=== PATIENT | male | born 1995 | race Caucasian/White ===

== ENCOUNTER 2016-11-15 14:33 | Emergency (ER) | payer SELFPAY ==
--- NOTE | 2016-11-15 14:44 | ER Document Report ---
ED Medical Screen (RME) - General Stated Complaint: SYNCOPE Mode of Arrival: Medic Information source: Emergency Med Personnel Notes: patients presents to the emergency department via EMS for syncope episode. EMS reports patient was up working on a fell over hit the car and then landed on the ground. Family reports patient was making posturing movements. Unsure of how long he was out. Denies past medical history of syncope. Laceration to right eyebrow with hematoma. Pt reports he has been eating/drinking as normal, denies f/v/d. Reports hx of dizziness. Denies CAD. I have greeted and performed a rapid initial assessment of this patient. A comprehensive ED assessment and evaluation of the patient, analysis of test results and completion of the medical decision making process will be conducted by additional ED providers. TRAVEL OUTSIDE OF THE [place] IN LAST 30 DAYS: No - Related Data Allergies/Adverse Reactions: No Known Allergies Allergy (Unverified 06/03/14 11:01) Past Medical History Psychiatric Medical History: Reports: Hx Depression - Immunizations Hx Diphtheria, Pertussis, Tetanus Vaccination: Yes Physical Exam - Vital signs Vitals: Temp Pulse Resp BP Pulse Ox 97.5 F 59 L 16 106/69 100 11/15/16 14:42 11/15/16 14:42 11/15/16 14:42 11/15/16 14:42 11/15/16 14:42 Course - Vital Signs Vital signs: Temp Pulse Resp BP Pulse Ox 97.5 F 59 L 16 106/69 100 11/15/16 14:42 11/15/16 14:42 11/15/16 14:42 11/15/16 14:42 11/15/16 14:42
[2016-11-15 14:46] VITALS: BP 106/69
[2016-11-15 17:53] LABS: ABSOLUTE EOSINOPHILS # (AUTO) 0.1 10^3/uL (0.0-0.6); ABSOLUTE LYMPHOCYTES (AUTO) 1.6 10^3/uL (0.5-4.7); ABSOLUTE MONOCYTES (AUTO) 0.5 10^3/uL (0.1-1.4); ABSOLUTE NEUT (AUTO) 4.7 10^3/uL (1.7-8.2); BASOPHILS % (AUTO) 0.3 % (0-2); EOSINOPHILS % (AUTO) 1.3 % (0-6); HEMATOCRIT 38.8 % (37.9-51.0); HEMOGLOBIN 13.4 g/dL (13.5-17.0); HGB HCT DIFFERENCE 1.4; LYMPHOCYTES % (AUTO) 22.7 % (13-45); MEAN CORPUSCULAR HEMOGLOBIN 28.7 pg (27.0-33.4); MEAN CORPUSCULAR HGB CONC 34.6 g/dL (32.0-36.0); MEAN CORPUSCULAR VOLUME 83 fl (80-97); MONOCYTES % (AUTO) 6.6 % (3-13); RED BLOOD COUNT 4.68 10^6/uL (4.35-5.55); RED CELL DISTRIBUTION WIDTH 12.9 % (11.5-14.0); SEGMENTED NEUTROPHILS % (AUTO) 69.1 % (42-78); WHITE BLOOD COUNT 6.8 10^3/uL (4.0-10.5)
[2016-11-15 17:56] LABS: APPEARANCE,URINE CLEAR; BILIRUBIN,URINE NEGATIVE (NEGATIVE); CALCIUM OXALATE CRYSTALS,URINE RARE /HPF; GLUCOSE, URINE NEGATIVE (NEGATIVE); KETONES,URINE NEGATIVE (NEGATIVE); LEUKOCYTE ESTERASE,URINE NEGATIVE (NEGATIVE); NITRITE,URINE NEGATIVE (NEGATIVE); PROTEIN,URINE NEGATIVE (NEGATIVE); URINE SPECIFIC GRAVITY 1.018; UROBILINOGEN,URINE NEGATIVE mg/dL (<2.0)
[2016-11-15 18:09] LABS: URINE BARBITURATES SCREEN NEGATIVE; URINE METHADONE SCREEN NEGATIVE; URINE OPIATES LOW NEGATIVE; URINE PHENCYCLIDINE SCREEN NEGATIVE
[2016-11-15 18:14] LABS: ALANINE AMINOTRANSFERASE 23 U/L (21-72); ALBUMIN 3.5 g/dL (3.5-5.0); ALKALINE PHOSPHATASE 58 U/L (38-126); ANION GAP 10 (5-19); ASPARTATE AMINO TRANSFERASE 17 U/L (17-59); BILIRUBIN,DIRECT 0.1 mg/dL (0.0-0.4); BILIRUBIN,TOTAL 0.2 mg/dL (0.2-1.3); BLOOD UREA NITROGEN 9 mg/dL (7-20); CALCIUM 8.4 mg/dL (8.4-10.2); CARBON DIOXIDE 22 mmol/L (22-30); CHLORIDE 114 mmol/L (98-107); CREATININE RESULT 0.78 mg/dL (0.52-1.25); GLUCOSE 87 mg/dL (75-110); POTASSIUM 3.6 mmol/L (3.6-5.0); SODIUM 145.7 mmol/L (137-145)
--- NOTE | 2016-11-16 00:17 | EKG REPORT ---
SEVERITY:- NORMAL ECG - SINUS RHYTHM : Confirmed by: Ashlee Greenberg 16-Nov-2016 00:16:22
== END 2016-11-15 19:25 | disposition left against medical advice (07) ==
LOC: ER 14:33
DX: R55 Syncope and collapse (principal); S01.111A Laceration without foreign body of right eyelid and periocular area, initial encounter; W19.XXXA Unspecified fall, initial encounter; Y99.0 Civilian activity done for income or pay; Z53.20 Procedure and treatment not carried out because of patient's decision for unspecified reasons
CPT/HCPCS: 36415; 70450; 72125; 80053; 80307; 81001; 85025; 93005; 93010; 99281

== ENCOUNTER 2017-01-06 11:17 | Emergency (ER) | payer SELFPAY ==
[2017-01-06] MEDS ORDERED: PROCHLORPERAZINE EDISYLATE INJ 10 MG/2 ML VIAL IV ONE (12:25)
[2017-01-06] MEDS ORDERED: DIPHENHYDRAMINE HCL 50 MG/ML VIAL IV ONE (12:25)
[2017-01-06] MEDS ORDERED: KETOROLAC TROMETHAMINE INJ/PF 30 MG/1 ML SDV IV ONE (12:25)
[2017-01-06] MEDS ORDERED: NORMAL SALINE 1000 ML 1,000 ML IV ONE (12:26)
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
[2017-01-06 14:31] LABS: APPEARANCE,URINE SLIGHTLY-CLOUDY; BILIRUBIN,URINE NEGATIVE (NEGATIVE); GLUCOSE, URINE NEGATIVE (NEGATIVE); KETONES,URINE NEGATIVE (NEGATIVE); LEUKOCYTE ESTERASE,URINE NEGATIVE (NEGATIVE); NITRITE,URINE NEGATIVE (NEGATIVE); PROTEIN,URINE NEGATIVE (NEGATIVE); URINE SPECIFIC GRAVITY 1.023; UROBILINOGEN,URINE NEGATIVE mg/dL (<2.0)
[2017-01-06 15:26] LABS: URINE BARBITURATES SCREEN NEGATIVE; URINE METHADONE SCREEN NEGATIVE; URINE OPIATES LOW NEGATIVE; URINE PHENCYCLIDINE SCREEN NEGATIVE
[2017-01-06 15:33] VITALS: BP 121/62
== END 2017-01-06 15:31 | disposition home or self-care (01) ==
LOC: ER 11:17
DX: G43.909 Migraine, unspecified, not intractable, without status migrainosus (principal); J06.9 Acute upper respiratory infection, unspecified; R05 Cough; R11.2 Nausea with vomiting, unspecified; J34.89 Other specified disorders of nose and nasal sinuses; J02.9 Acute pharyngitis, unspecified; J35.1 Hypertrophy of tonsils; F17.210 Nicotine dependence, cigarettes, uncomplicated; Z71.6 Tobacco abuse counseling; Z87.81 Personal history of (healed) traumatic fracture
CPT/HCPCS: 99284; 96361; 96374; 96375; 87070; 87880; 81001; 80307; 71020; J1200; J1885; J0780; J7030

== ENCOUNTER 2017-05-30 10:39 | Emergency (ER) | payer SELFPAY ==
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
[2017-05-30 11:13] LABS: ABSOLUTE EOSINOPHILS # (AUTO) 0.2 10^3/uL (0.0-0.6); ABSOLUTE LYMPHOCYTES (AUTO) 1.8 10^3/uL (0.5-4.7); ABSOLUTE MONOCYTES (AUTO) 0.4 10^3/uL (0.1-1.4); ABSOLUTE NEUT (AUTO) 3.9 10^3/uL (1.7-8.2); BASOPHILS % (AUTO) 0.3 % (0-2); EOSINOPHILS % (AUTO) 3.1 % (0-6); HEMATOCRIT 45.2 % (37.9-51.0); HEMOGLOBIN 15.5 g/dL (13.5-17.0); HGB HCT DIFFERENCE 1.3; LYMPHOCYTES % (AUTO) 27.9 % (13-45); MEAN CORPUSCULAR HEMOGLOBIN 30.1 pg (27.0-33.4); MEAN CORPUSCULAR HGB CONC 34.3 g/dL (32.0-36.0); MEAN CORPUSCULAR VOLUME 88 fl (80-97); MONOCYTES % (AUTO) 6.5 % (3-13); RED BLOOD COUNT 5.15 10^6/uL (4.35-5.55); RED CELL DISTRIBUTION WIDTH 14.2 % (11.5-14.0); SEGMENTED NEUTROPHILS % (AUTO) 62.2 % (42-78); WHITE BLOOD COUNT 6.3 10^3/uL (4.0-10.5)
[2017-05-30 11:28] LABS: APPEARANCE,URINE CLEAR; BILIRUBIN,URINE NEGATIVE (NEGATIVE); GLUCOSE, URINE NEGATIVE (NEGATIVE); KETONES,URINE NEGATIVE (NEGATIVE); LEUKOCYTE ESTERASE,URINE NEGATIVE (NEGATIVE); NITRITE,URINE NEGATIVE (NEGATIVE); PROTEIN,URINE NEGATIVE (NEGATIVE); UROBILINOGEN,URINE NEGATIVE mg/dL (<2.0)
[2017-05-30 11:37] LABS: ALANINE AMINOTRANSFERASE 27 U/L (21-72); ALBUMIN 4.4 g/dL (3.5-5.0); ALKALINE PHOSPHATASE 64 U/L (38-126); ANION GAP 13 (5-19); ASPARTATE AMINO TRANSFERASE 16 U/L (17-59); BILIRUBIN,DIRECT 0.3 mg/dL (0.0-0.4); BILIRUBIN,TOTAL 0.5 mg/dL (0.2-1.3); BLOOD UREA NITROGEN 9 mg/dL (7-20); CALCIUM 9.6 mg/dL (8.4-10.2); CARBON DIOXIDE 27 mmol/L (22-30); CHLORIDE 106 mmol/L (98-107); GLUCOSE 62 mg/dL (75-110); POTASSIUM 4.2 mmol/L (3.6-5.0); TOTAL PROTEIN 7.1 g/dL (6.3-8.2); URINE BARBITURATES SCREEN NEGATIVE; URINE METHADONE SCREEN NEGATIVE; URINE OPIATES LOW NEGATIVE; URINE PHENCYCLIDINE SCREEN NEGATIVE
[2017-05-30 11:38] LABS: ALCOHOL < 10 mg/dL (NONE DETECTED)
[2017-05-30 13:26] LABS: ADD HIVPANEL? NO; HIV (1 AND 2) ANTIBODY NEGATIVE (NEGATIVE)
--- NOTE | 2017-05-30 13:41 | EKG REPORT ---
SEVERITY:- NORMAL ECG - SINUS RHYTHM : Confirmed by: Sagar Prajapati MD 30-May-2017 13:41:08
[2017-05-30 14:17] VITALS: BP 125/60
== END 2017-05-30 14:17 | disposition home or self-care (01) ==
LOC: ER 10:39
DX: F15.10 Other stimulant abuse, uncomplicated (principal); R45.851 Suicidal ideations; R45.850 Homicidal ideations; F32.9 Major depressive disorder, single episode, unspecified; F11.10 Opioid abuse, uncomplicated; F17.210 Nicotine dependence, cigarettes, uncomplicated
CPT/HCPCS: 36415; 80053; 80074; 80307; 81001; 85025; 86701; 93005; 93010; 99285

== ENCOUNTER 2017-07-08 22:55 | Emergency (ER) | payer SELFPAY ==
[2017-07-08 23:19] VITALS: BP 111/75
[2017-07-08] MEDS ORDERED: IBUPROFEN 800 MG TABLET PO ONE (23:53)
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
[2017-07-09] MEDS ORDERED: LIDOCAINE 1% INJ-PF (10 MG/ML) 30 ML SDV ONE (00:04)
[2017-07-09] MEDS ORDERED: SULFAMETHOXAZOLE/TRIMETHOPRIM 800-160 MG TABLET PO ONE (00:30)
[2017-07-09] MEDS ORDERED: CEPHALEXIN 500 MG CAPSULE PO ONE (00:30)
== END 2017-07-09 01:00 | disposition home or self-care (01) ==
LOC: ER 22:55
PROC: 0H9DXZZ Drainage of Right Lower Arm Skin, External Approach (ICD-10-PCS; principal; 2017-07-08)
DX: L02.413 Cutaneous abscess of right upper limb (principal); Z79.899 Other long term (current) drug therapy; F17.210 Nicotine dependence, cigarettes, uncomplicated
CPT/HCPCS: 99283

== ENCOUNTER 2017-08-17 15:29 | Day surgery (SDC) | payer SELFPAY ==
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
[2017-08-17] MEDS ORDERED: RINGERS SOLUTION,LACTATED 1,000 ML IV PRN ×2 (18:11→19:50)
[2017-08-17] MEDS ORDERED: MIDAZOLAM 2 MG/2 ML INJ ONE (18:17)
[2017-08-17] MEDS ORDERED: HYDROMORPHONE HCL INJ/PF 2 MG/ML AMPULE ONE (18:17)
[2017-08-17] MEDS ORDERED: EPHEDRINE SULFATE INJ 50 MG/1 ML AMPULE ONE (18:17)
[2017-08-17] MEDS ORDERED: ONDANSETRON HCL INJ/PF 4 MG/2 ML SDV ONE (18:17)
[2017-08-17] MEDS ORDERED: PROPOFOL INJ 200 MG/20 ML VIAL IV ONE (18:18)
[2017-08-17 18:50] LABS: URINE AMPHETAMINES SCREEN NEGATIVE; URINE BARBITURATES SCREEN NEGATIVE; URINE BENZODIAZEPINES SCREEN NEGATIVE; URINE COCAINE SCREEN NEGATIVE; URINE METHADONE SCREEN NEGATIVE; URINE PHENCYCLIDINE SCREEN NEGATIVE
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
[2017-08-17 18:58] LABS: URINE MARIJUANA (THC) SCREEN UNCONFIRMED POSITIVE
[2017-08-17] MEDS ORDERED: BUPIVACAINE HCL 0.25% /EPINEPHRINE INJ/PF 30 ML SDV ONE (18:58)
[2017-08-17] MEDS ORDERED: AMPICILLIN SOD/SULBACTAM 3 GM VIAL ONE (19:12)
[2017-08-17] MEDS ORDERED: DIPHENHYDRAMINE HCL 50 MG/ML VIAL IV PRN (19:20)
[2017-08-17] MEDS ORDERED: MEPERIDINE HCL/PF INJ 25 MG/1 ML DISP.SYRIN IV PRN (19:20)
[2017-08-17] MEDS ORDERED: FENTANYL CITRATE INJ/PF 100 MCG/2 ML AMPUL IV PRN ×3 (19:20)
[2017-08-17] MEDS ORDERED: PROMETHAZINE HCL INJ 25 MG/1 ML VIAL IV PRN (19:20)
[2017-08-17] MEDS ORDERED: MORPHINE SULFATE 10 MG/ML INJ IV PRN (19:42)
--- NOTE | 2017-08-17 20:20 | Operative Report ---
Operative Report DATE OF SURGERY: 08/17/17 PREOPERATIVE DIAGNOSIS: Left-sided perianal abscess POSTOPERATIVE DIAGNOSIS: Same OPERATION: Incision and drainage of perianal anal abscess on the left SURGEON: For anesth ANESTHESIA: GA TISSUE REMOVED OR ALTERED: none COMPLICATIONS: none ESTIMATED BLOOD LOSS: 5 - 10 cc INTRAOPERATIVE FINDINGS: Abscess in the area as suspected PROCEDURE: Patient was brought to the operating room after obtaining informed consent. Following this he was placed in the supine position and anesthesia induced general anesthesia via an LMA. Patient was then turned into the left lateral decubitus position placing a pillow between his legs and trimming the hair with a clipper in the perianal area. Appropriate Betadine prep was completed. Following this the patient was draped. Timeout was performed confirming patient and site of surgery. Following this local anesthetic using 0.25% Marcaine with epinephrine was instilled directly over the 4 x 2.5 cm area of swelling and redness immediately lateral and posterior to his anal area on the left. Patient received 3 g of Unasyn at the time of induction of anesthesia. Following this a an 18-gauge needle on a 6 cc syringe was placed directly into the perianal skin at the center of the swelling. There was withdrawal of a good amount of serosanguineous pussy fluid. Some of this was placed on a C&S swab and sent for culture. Following this leaving the needle in place for the local anesthetic was instilled and then an 11 blade knife was used to incise the abscess some more serosanguineous cloudy fluid was obtained along with some purulent looking whitish cloudy material. There was approximately about a 5-8 cc cavity underneath the area of the swelling. This was carefully rinsed with about 50 cc of saline. Incision was extended total of 5 cm mostly away for the anal area but also slightly toward the anal opening but still a good 1-2 cm off the anal verge. The area was then packed with approximately 20 inches of half- inch iodoform gauze. Bleeding was controlled with Bovie cautery but there was not much. Patient tolerated procedure well. Patient taken to recovery room in good condition. Estimated blood loss: Approximately 5-10 cc.
[2017-08-17 21:08] VITALS: BP 136/65
[2017-08-17] MEDS ORDERED: SULFAMETHOXAZOLE/TRIMETHOPRIM 800-160 MG TABLET PO SCH (22:00)
[2017-08-18] MEDS ORDERED: AMPICILLIN SODIUM/SULBACTAM NA 3 GM in NORMAL SALINE 100 ML IV SCH (02:00)
== END 2017-08-17 21:30 | disposition home or self-care (01) ==
LOC: ER 15:29 → OROUT 18:29 → 2N 21:00 → OROUT 21:30
PROVIDERS: ATTEND Surgery
PROC: 0D9Q0ZZ Drainage of Anus, Open Approach (ICD-10-PCS; principal; 2017-08-17 18:30)
DX: K61.0 Anal abscess (principal); G43.909 Migraine, unspecified, not intractable, without status migrainosus; M19.90 Unspecified osteoarthritis, unspecified site; F17.210 Nicotine dependence, cigarettes, uncomplicated; Z87.820 Personal history of traumatic brain injury; Z79.1 Long term (current) use of non-steroidal anti-inflammatories (NSAID)
CPT/HCPCS: 87070; 87205; 87075; 87077; 80307; 46050; J2250; J3490; J0295; J1170; J2405; J2704; 902; 99283

== ENCOUNTER 2018-01-09 14:27 | Emergency (ER) | payer SELFPAY ==
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
[2018-01-09 18:16] VITALS: BP 108/70
== END 2018-01-09 18:16 | disposition home or self-care (01) ==
LOC: ER 14:27
DX: L02.413 Cutaneous abscess of right upper limb (principal); L03.113 Cellulitis of right upper limb; F17.200 Nicotine dependence, unspecified, uncomplicated
CPT/HCPCS: 99281

== ENCOUNTER 2018-12-07 08:38 | Emergency (ER) | payer OTHER ==
[2018-12-07] MEDS ORDERED: LIDOCAINE 5% (700 MG) TRANSDERMAL ADH..PATCH TP ONE (10:22)
[2018-12-07] MEDS ORDERED: ACETAMINOPHEN 325 MG TABLET PO ONE (10:22)
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
[2018-12-07 10:37] VITALS: BP 122/62
== END 2018-12-07 10:39 | disposition home or self-care (01) ==
LOC: ER 08:38
DX: M54.9 Dorsalgia, unspecified (principal); M54.5 Low back pain; F17.200 Nicotine dependence, unspecified, uncomplicated
CPT/HCPCS: 99283

== ENCOUNTER 2019-01-17 01:20 | Emergency (ER) | payer SELFPAY ==
[2019-01-17] MEDS ORDERED: METOCLOPRAMIDE HCL INJ/PF 10 MG/2 ML SDV IV ONE (02:27)
[2019-01-17] MEDS ORDERED: DIPHENHYDRAMINE HCL 50 MG/ML VIAL IV ONE (02:27)
[2019-01-17] MEDS ORDERED: KETOROLAC TROMETHAMINE INJ/PF 30 MG/1 ML SDV IV ONE (02:27)
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
[2019-01-17 02:58] LABS: ABSOLUTE EOSINOPHILS # (AUTO) 0.1 10^3/uL (0.0-0.6); ABSOLUTE LYMPHOCYTES (AUTO) 1.2 10^3/uL (0.5-4.7); ABSOLUTE MONOCYTES (AUTO) 0.4 10^3/uL (0.1-1.4); ABSOLUTE NEUT (AUTO) 6.7 10^3/uL (1.7-8.2); BASOPHILS % (AUTO) 0.4 % (0-2); EOSINOPHILS % (AUTO) 1.6 % (0-6); HEMATOCRIT 45.4 % (37.9-51.0); HEMOGLOBIN 15.8 g/dL (13.5-17.0); LYMPHOCYTES % (AUTO) 14.4 % (13-45); MEAN CORPUSCULAR HEMOGLOBIN 29.3 pg (27.0-33.4); MEAN CORPUSCULAR HGB CONC 34.7 g/dL (32.0-36.0); MEAN CORPUSCULAR VOLUME 84 fl (80-97); MONOCYTES % (AUTO) 4.2 % (3-13); PLATELET COUNT 191 10^3/uL (150-450); RED BLOOD COUNT 5.38 10^6/uL (4.35-5.55); RED CELL DISTRIBUTION WIDTH 13.1 % (11.5-14.0); SEGMENTED NEUTROPHILS % (AUTO) 79.4 % (42-78); TOTAL CELLS COUNTED % (AUTO) 100 %; WHITE BLOOD COUNT 8.5 10^3/uL (4.0-10.5)
[2019-01-17 03:14] LABS: ALBUMIN 4.8 g/dL (3.5-5.0); ANION GAP 14 (5-19); ASPARTATE AMINO TRANSFERASE 23 U/L (17-59); BLOOD UREA NITROGEN 14 mg/dL (7-20); CALCIUM 10.2 mg/dL (8.4-10.2); CARBON DIOXIDE 23 mmol/L (22-30); CHLORIDE 107 mmol/L (98-107); GLUCOSE 110 mg/dL (75-110); POTASSIUM 4.3 mmol/L (3.6-5.0); SODIUM 144.3 mmol/L (137-145)
[2019-01-17 03:15] LABS: ALANINE AMINOTRANSFERASE 16 U/L (21-72); ALKALINE PHOSPHATASE 78 U/L (38-126); BILIRUBIN,DIRECT 0.3 mg/dL (0.0-0.4); BILIRUBIN,TOTAL 0.6 mg/dL (0.2-1.3); CREATINE KINASE 136 U/L (55-170); PHOSPHORUS 4.2 mg/dL (2.5-4.5); TOTAL PROTEIN 7.8 g/dL (6.3-8.2)
[2019-01-17 03:16] LABS: APPEARANCE,URINE CLEAR; BILIRUBIN,URINE NEGATIVE (NEGATIVE); COLOR,URINE YELLOW; GLUCOSE, URINE NEGATIVE (NEGATIVE); KETONES,URINE NEGATIVE (NEGATIVE); LEUKOCYTE ESTERASE,URINE NEGATIVE (NEGATIVE); NITRITE,URINE NEGATIVE (NEGATIVE); PROTEIN,URINE NEGATIVE (NEGATIVE); URINE SPECIFIC GRAVITY 1.009
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
[2019-01-17 03:58] VITALS: BP 120/84
== END 2019-01-17 04:05 | disposition home or self-care (01) ==
LOC: ER 01:20
DX: F11.23 Opioid dependence with withdrawal (principal); R51 Headache; Z86.69 Personal history of other diseases of the nervous system and sense organs; R53.1 Weakness; R20.2 Paresthesia of skin
CPT/HCPCS: 99284; 96374; 96375; 36415; 82550; 83735; 84100; 85025; 80053; 81001; J1200; J1885; J2765